=== PATIENT | female | born 1970 | race Caucasian/White ===

== ENCOUNTER 2016-07-22 00:57 | Emergency (ER) | payer OTHER ==
[~2016-07-22] VITALS: Ht 170.2 cm; Wt 74.4 kg
[~2016-07-22 00:57] MED LIST: AUGMENTIN 875-1 EACH PO; BENAZEPRIL HYDR10 MG PO; ESCITALOPRAM10 MG PO; HYDROCORTISONE20 MG PO; HYDROCORTISONE5 M1 PO; LEVOTHYROXINE125 MCG PO; LOMOTIL 0.025 M1 TAB PO; PREDNISONE50 M1 PO; PRILOSEC OTC20 M1 PO; PRILOSEC OTC20 MG PO; SYNTHROID0.1 MG PO; TOPIRAMATE50 MG PO; ZOFRAN ODT4 MG PO
--- NOTE | 2016-07-22 01:10 | ED HEADACHE COMPLAINT ---
History of Present Illness General Chief Complaint: Headache Stated Complaint: "PER PT BAD HEADACHE" Source: patient Exam Limitations: no limitations Vital Signs & Intake/Output Vital Signs & Intake/Output Vital Signs Date Time Temp Pulse Resp B/P Pulse O2 O2 Flow FiO2 Ox Delivery Rate 07/22 05 97.4 75 18 132/79 97 Room Air 07/22 0111 Room Air 07/22 0105 97.3 74 18 144/84 95 Room Air Allergies Coded Allergies: NO KNOWN ALLERGIES (02/08/11) Reconcile Medications Amoxicillin/Potassium Clav (Augmentin 875-125 Tablet) 1 EACH TABLET 1 TAB PO BID sinusitis Benazepril Hydrochloride 10 MG TAB 1 TAB PO DAILY BP (Reported) Cyclobenzaprine HCl 10 MG TABLET 1 TAB PO 4 TIMES/DAY PRN MUSCLE SPASM Hydrocortisone 5 MG TABLET 15 MG PO QAM ADRENAL INSUFFICIENCY (Reported) Ibuprofen 800 MG TABLET 1 TAB PO TID PRN pain Levothyroxine Sodium 125 MCG TABLET 1 TAB PO DAILY THYROID (Reported) Metoclopramide HCl (Reglan) 10 MG TABLET 1 TAB PO 4 TIMES/DAY PRN nausea 30 minutes before meals and bedtime Omeprazole Magnesium (Prilosec Otc) 20 MG TABLET.DR 1 TAB PO PRN GI (Reported ) Oxycodone HCl/Acetaminophen (Percocet 5-325 MG Tablet) 5 MG-325 MG TABLET 1 TAB PO 4XDP PRN PAIN TEN...[id number] Prednisone 50 MG TABLET 1 TAB PO DAILY sinusitis Triage Note: PT TO TRIAGE C/O 01/24 HEADACHE. NO RELIEF FROM MOTRIN PM AT HOME. DENIES BLURRED VISION. Triage Nurses Notes Reviewed? yes Onset: Gradual Duration: day(s): Timing: recent history Quality/Severity: moderate Head Injury Location: global Modifying Factors: Improves With: rest. Associated Symptoms: nausea/vomiting : No Patient currently breastfeeds: No HPI: 46 yo woman, w/ adrenal insufficiency, in prior good health with intermittent headaches, presents with 2 days of a throbbing global headache, with mild nausea. She notes she has been seen in the ED for the same, was given medications and felt better. She has a history of psedotumor cerebri several years ago but is no longer taking any medications for this. She notes that tonights headache is different from the one she had with pseudotumor cerebri. She notes no fever, chills, vision changes, stiff neck, dyspnea. She is otherwise well. Past History Travel History Traveled to [place] past 21 day No Medical History Any Pertinent Medical History? see below for history Cardiovascular: HIGH BLOOD PRESSURE Endocrine: ADRENAL DEFIENCY PITUITARY TUMOR Surgical History Surgical History: none Psychosocial History What is your primary language Setsw[place] Tobacco Use: Never used ETOH Use: denies use Family History Hx Contributory? No Review of Systems Review of Systems Constitutional: Reports: no symptoms. Eyes: Reports: no symptoms. Ears, Nose, Throat, Mouth: Reports: no symptoms. Respiratory: Reports: no symptoms. Cardiovascular: Reports: no symptoms. Gastrointestinal/Abdominal: Reports: no symptoms. Genitourinary: Reports: no symptoms. Musculoskeletal: Reports: no symptoms. Skin: Reports: no symptoms. Neurological/Psychological: Reports: no symptoms. Hematologic/Endocrine: Reports: no symptoms. Endocrine: Reports: no symptoms. Immunologic/Allergic: Reports: no symptoms. All Other Systems: Reviewed and Negative Physical Exam Physical Exam General Appearance: well developed/nourished, mild distress Head: atraumatic, normal appearance, tenderness diffusely along scalp musculature Eyes: Bilateral: normal appearance, PERRL, EOMI. Ears, Nose, Throat: normal pharynx, normal ENT inspection Neck: normal inspection, supple, full range of motion Respiratory: normal breath sounds, chest non-tender, no respiratory distress, quiet respiration Cardiovascular: regular rate/rhythm Gastrointestinal: normal bowel sounds, soft, non-tender, no organomegaly Extremities: normal inspection Psychiatric: awake, alert, oriented x 3 Cranial Nerves: normal hearing, normal speech, PERRL Coordination/Gait: normal finger to nose, normal gait Motor/Sensory: no motor/sensory deficits, motor deficit Reflexes: 1+: bicep (R), bicep (L). Skin: intact, normal color, warm/dry Core Measures Severe Sepsis Present: No Septic Shock Present: No Progress Differential Diagnosis: tension vs migraine vs pseudotumor cerebri vs other. Plan of Care: pt given supportive medications, felt better, discussed at length. Pt wishes to defer LP and will follow up with neurologist. Departure Departure Disposition: HOME OR SELF CARE Condition: Stable Clinical Impression Primary Impression: Headache Referrals: ANA ANDUJAR MD (PCP/Family) Departure Forms: Customer Survey General Discharge Information Prescriptions: Current Visit Scripts Ibuprofen 1 TAB PO TID PRN pain #60 TAB Ref 1 Metoclopramide HCl (Reglan) 1 TAB PO 4 TIMES/DAY PRN nausea #60 TAB 30 minutes before meals and bedtime Cyclobenzaprine HCl 1 TAB PO 4 TIMES/DAY PRN MUSCLE SPASM #30 TAB Ref 1 Oxycodone HCl/Acetaminophen (Percocet 5-325 MG Tablet) 1 TAB PO 4XDP PRN PAIN #10 TAB TEN...[id number] Comments 07/22/16, 4:44am. Pt feeling better after supportive medications. Pt feels comfortable going home with follow up with neurology. Discussed LP and pseudotumor cerebri. Given that she is feeling better, that her headache is for 2 days and did not reflect her prior episode of pseudotumor, but rather her more routine headaches, pt safe for discharge with close follow up.
[2016-07-22] MEDS ORDERED: IBUPROFEN800 M1 PO (04:42)
[2016-07-22] MEDS ORDERED: REGLAN10 M1 PO (04:42)
[2016-07-22] MEDS ORDERED: CYCLOBENZAPRINE10 M1 PO (04:42)
[2016-07-22] MEDS ORDERED: PERCOCET 5-3251 EACH PO ×2 (04:42→04:44)
[2016-07-22 05:11] VITALS: BP 132/79
== END 2016-07-22 05:12 ==
LOC: ERH 00:57
DX: R51 Headache (principal)
CPT/HCPCS: 96374; 96375; J1200; J1885; J2765